=== PATIENT | male | born 1960 | race Caucasian/White ===

== ENCOUNTER → 2023-05-17 08:38 | Outpatient (REF) | payer BC, SELFPAY | LOC: HWRAD 08:38 | PROVIDERS: ATTENDING PHYSICIAN Specialist; FAMILY PHYSICIAN Internal Medicine | DX: R31.0 Gross hematuria (principal) | CPT/HCPCS: 74178; Q9967 ==

== ENCOUNTER 2023-05-24 06:20 | Day surgery (SDC) | payer BC, SELFPAY ==
[2023-05-22 14:01] VITALS: BMI 33.6
[2023-05-22 14:36] LABS: APTT 26.7 Sec (23.4-35.0); INR 1.03; PT 13.3 Sec (11.4-14.6)
--- NOTE | 2023-05-22 15:44 | PTCARENOTE ---
Dr Reyes made aware of abnormal EKG dated 05/22/23- no further action requested.
[2023-05-24] VITALS (8 sets, daily range): BP systolic 125–177; BP diastolic 65–93; BMI 33.6
[2023-05-24] MEDS: NORMOSOL-R 1000 IV (09:08)
[2023-05-24] MEDS: BENADRYL 25 MG IV (09:34)
[2023-05-24] MEDS: SOLU-CORTEF 100 MG IV (09:35)
[2023-05-24] MEDS: FLOMAX 0.400000000000000022 MG PO (11:53)
[2023-05-30 08:48] LABS: Stone Analysis Mass 150 mg
== END 2023-05-24 13:20 | disposition home or self-care (01) ==
LOC: SDS 06:20
PROVIDERS: ATTENDING PHYSICIAN Specialist; FAMILY PHYSICIAN Family Medicine
DX: N21.1 Calculus in urethra (principal); R31.0 Gross hematuria
CPT/HCPCS: 52317; 36415; 74420; 76000; 82365; 85610; 85730; 93005; C1758

== ENCOUNTER → 2023-11-12 12:34 | Outpatient (REF) | payer BC, SELFPAY | LOC: HWRAD 12:34 | PROVIDERS: ATTENDING PHYSICIAN Family Medicine | DX: R91.1 Solitary pulmonary nodule (principal) | CPT/HCPCS: 71250 ==

== ENCOUNTER → 2024-10-13 09:53 | Outpatient (REF) | payer BC, SELFPAY | LOC: HWRAD 09:53 | PROVIDERS: ATTENDING PHYSICIAN Specialist; FAMILY PHYSICIAN Family Medicine | DX: Q61.01 Congenital single renal cyst (principal); N20.0 Calculus of kidney | CPT/HCPCS: 74018; 76775 ==

== ENCOUNTER → 2024-11-03 07:53 | Outpatient (REF) | payer BC, SELFPAY | LOC: HWRAD 07:53 | PROVIDERS: ATTENDING PHYSICIAN Family Medicine | DX: R91.1 Solitary pulmonary nodule (principal) | CPT/HCPCS: 71250 ==

== ENCOUNTER 2024-12-25 06:16 | Day surgery (SDC) | payer BC, SELFPAY ==
[2024-12-19 11:02] LABS: Hematocrit 43.1 % (39.0-52.0); Hemoglobin 14.8 g/dL (13.0-18.0); Mean Corp Hgb Conc. 34.3 g/dL (33.0-37.0); Mean Corpuscular Volume 88.5 fL (80.0-94.0); Platelet Count 192 10^3/uL (130-400); Red Cell Dist. Width 12.8 % (11.5-14.5)
[2024-12-19 11:18] LABS: Blood Urea Nitrogen 11 mg/dl (9-20); Calcium 9.6 mg/dl (8.4-10.2); Carbon Dioxide 26 mmol/L (22-30); Chloride 108 mmol/L (98-107); Glucose 100 mg/dl (70-99); Potassium 4.8 mmol/L (3.5-5.1); Sodium 140 mmol/L (135-145); eGFR > 60.00
[2024-12-19 14:05] VITALS: BMI 33.2
[2024-12-25] VITALS (8 sets, daily range): BP systolic 111–188; BP diastolic 65–93; BMI 33.2
[2024-12-25] MEDS: NORMOSOL-R/PLASMALYTE-A 1000 IV (08:43)
[2024-12-25] MEDS: FLOMAX 0.4 MG PO (10:54)
== END 2024-12-25 11:50 | disposition home or self-care (01) ==
LOC: SDS 06:16
PROVIDERS: ATTENDING PHYSICIAN Specialist; FAMILY PHYSICIAN Family Medicine
DX: N20.2 Calculus of kidney with calculus of ureter (principal)
CPT/HCPCS: 52356; 36415; 74420; 76000; 80048; 82365; 85027; 93005; C1758; C1894; C2617